=== PATIENT | female | born 1945 | race Caucasian/White ===

== ENCOUNTER 2019-09-28 11:54 | Emergency (ER) | payer MEDICARE ==
[2019-09-28] MEDS ORDERED: ONDANSETRON INJ 4 MG/2 ML VIAL IV ONE (12:18)
[2019-09-28] MEDS ORDERED: SODIUM CHLORIDE 0.9% (FLUSH) 10 ML SYG IV PRN (12:18)
[2019-09-28] MEDS ORDERED: ASPIRIN TABLET 325 MG TAB PO ONE (12:18)
[2019-09-28] MEDS ORDERED: PROMETHAZINE HCL INJ 12.5 MG in SODIUM CHLORIDE 0.9% 50ML 50 ML IVPB ONE (12:22)
[2019-09-28] MEDS ORDERED: diazePAM INJ 10 MG/2 ML SYG IV ONE (12:22)
[2019-09-28] MEDS ORDERED: PROMETHAZINE HCL INJ 25 MG/ML VIAL ONE (12:32)
--- NOTE | 2019-09-28 12:32 | ED.PDOC ---
History of Present Illness - General Chief Complaint: Chest Pain/NM Stated Complaint: Chest pain, vomiting Time Seen by Provider: 09/28/19 12:18 - History of Present Illness Initial Comments: 73 y/o female presents with vertigo, n/v, and intermittent chest pain. She states that she has benign positional vertigo and took meclizine without improvement. She also does positional maneuvers to no avail. She reports having on and off chest pain last night. A heart cath within the last year was clean for CAD. She had an apple before bed. This morning she has vomited her breakfast, the aspirin she took and again in the ER after sitting up. No fever, chills, cough, h/a, or diarrhea Allergies/Adverse Reactions: Allergies Hydroxychloroquine [From Plaquenil] Allergy (Verified 09/28/19 12:31) Methotrexate Allergy (Verified 09/28/19 12:31) Sulfasalazine Allergy (Verified 09/28/19 12:31) Acetaminophen [From Darvocet-N] Adverse Reaction (Verified 09/28/19 12:31) Aspirin [From Talwin Compound] Adverse Reaction (Verified 09/28/19 12:31) Bisoprolol Adverse Reaction (Verified 09/28/19 12:31) Butorphanol [From Stadol] Adverse Reaction (Verified 09/28/19 12:31) Codeine Adverse Reaction (Verified 09/28/19 12:31) Doxycycline Adverse Reaction (Verified 09/28/19 12:31) Meloxicam [From Mobic] Adverse Reaction (Verified 09/28/19 12:31) Morphine and Related Adverse Reaction (Verified 09/28/19 12:31) Naproxen Adverse Reaction (Verified 09/28/19 12:31) Pentazocine [From Talwin Compound] Adverse Reaction (Verified 09/28/19 12:31) Propoxyphene [From Darvon] Adverse Reaction (Verified 09/28/19 12:31) Tramadol Adverse Reaction (Verified 09/28/19 12:31) Home Medications: Ambulatory Orders Bifidobacterium Infantis [Align] 4 mg PO DAILY 09/28/19 Biotin [Biotin Extra Strength] 10,000 mcg PO DAILY 09/28/19 [id number] [Butalbital/Acetaminophen/] 1 cap PO TID PRN 04/24/20 Coconut Oil (Bulk) [Coconut Oil] 1 oil XX DAILY 09/28/19 Dicyclomine HCl [Dicyclomine Hydrochloride] 10 mg PO TID PRN 09/28/19 Diltiazem HCl Coated Beads [Cartia Xt] 240 mg PO DAILY 09/28/19 Meclizine HCl [Meclizine] 25 mg PO DAILY PRN 09/28/19 Multiple Vitamin [Multi Vitamin] 1 tab PO DAILY 09/28/19 Ondansetron Odt [Zofran ODT] 8 mg PO PRN PRN 09/28/19 RX: Aspirin [Baby Aspirin] 81 mg PO QD 09/28/19 RX: Evening Gorin Oil [Evening Gorin Oil 500 mg] 500 mg PO DAILY 09/28/19 RX: Omeprazole 40 mg PO BID 09/28/19 RX: Sumatriptan Succinate 50 mg PO PRN PRN 09/28/19 Turmeric (Curcuma Longa) [Turmeric] 450 mg PO DAILY 09/28/19 Review of Systems - Review of Systems Constitutional: States: no symptoms reported EENTM: States: see HPI Respiratory: States: no symptoms reported Cardiology: States: see HPI, chest pain Gastrointestinal/Abdominal: States: no symptoms reported, nausea, vomiting Genitourinary: States: no symptoms reported Musculoskeletal: States: no symptoms reported Skin: States: no symptoms reported Neurological: States: see HPI Endocrine: States: no symptoms reported Hematologic/Lymphatic: States: no symptoms reported Past Medical History (General) - Patient Medical History Hx Seizures: No Hx Stroke: No Hx Dementia: No Hx Asthma: Yes Hx of COPD: No Hx Cardiac Disorders: No Hx Congestive Heart Failure: No Hx Pacemaker: No Hx Hypertension: Yes Hx Thyroid Disease: No Hx Diabetes: No Hx Renal Disease: No Hx Cancer: No Hx of HIV: No Hx Hepatitis C: No Hx MRSA: No - Vaccination History Hx Tetanus, Diphtheria Vaccination: No Hx Influenza Vaccination: No Hx Pneumococcal Vaccination: No - Social History Hx Tobacco Use: No Hx Alcohol Use: No Family Medical History - Family History Mother Family History: Unknown Living Status: Unknown Physical Exam - Physical Exam General Appearance: Alert, No apparent distress Eye Exam: bilateral abnormal EOM - nystagmus with R gaze Ears, Nose, Throat: hearing grossly normal, normal ENT inspection Neck: non-tender, full range of motion, supple, normal inspection Respiratory: chest non-tender, lungs clear, normal breath sounds Cardiovascular/Chest: regular rate, rhythm, no edema, no JVD, no murmur Gastrointestinal/Abdominal: normal bowel sounds, non tender, soft Back Exam: normal inspection Extremity: normal range of motion, non-tender, normal inspection, no pedal edema Neurologic: no motor/sensory deficits, alert, normal mood/affect, oriented x 3, other - intact ftn, no drift, intact heel to pizano Skin Exam: normal color, warm/dry Progress - Progress Progress: 09/28/19 14:50 NSR with PVC incomplete RBBB, ST-T wave abnormality 09/28/19 15:47Pt has not improved in spite of treatment. Plan to transfer to [facility] for further evaluation and treatment. Neurologist not available here. pt and daughter are in agreement with plan Departure - Departure Clinical Impression: Vertigo Disposition: Transfer to Hospital Condition: Fair Referrals: Elizabeth Viera FNP [Primary Care Provider] - 1-2 Weeks Home Medications: Ambulatory Orders Bifidobacterium Infantis [Align] 4 mg PO DAILY 09/28/19 Biotin [Biotin Extra Strength] 10,000 mcg PO DAILY 09/28/19 [id number] [Butalbital/Acetaminophen/] 1 cap PO TID PRN 09/28/19 Coconut Oil (Bulk) [Coconut Oil] 1 oil XX DAILY 09/28/19 Dicyclomine HCl [Dicyclomine Hydrochloride] 10 mg PO TID PRN 09/28/19 Diltiazem HCl Coated Beads [Cartia Xt] 240 mg PO DAILY 09/28/19 Meclizine HCl [Meclizine] 25 mg PO DAILY PRN 09/28/19 Multiple Vitamin [Multi Vitamin] 1 tab PO DAILY 09/28/19 Ondansetron Odt [Zofran ODT] 8 mg PO PRN PRN 09/28/19 RX: Aspirin [Baby Aspirin] 81 mg PO QD 09/28/19 RX: Evening Gorin Oil [Evening Gorin Oil 500 mg] 500 mg PO DAILY 09/28/19 RX: Omeprazole 40 mg PO BID 09/28/19 RX: Sumatriptan Succinate 50 mg PO PRN PRN 09/28/19 Turmeric (Curcuma Longa) [Turmeric] 450 mg PO DAILY 09/28/19
[2019-09-28] MEDS ORDERED: SODIUM CHLORIDE 0.9% 50ML 50 ML ONE (12:33)
[2019-09-28] MEDS ORDERED: diazePAM INJ 10 MG/2 ML SYG ONE (12:33)
--- NOTE | 2019-09-28 12:47 | RAD ---
EXAM DESCRIPTION: Chest,1 View CLINICAL HISTORY: chest pain COMPARISON: None available FINDINGS: The cardiomediastinal silhouette is unremarkable. There is no airspace consolidation or pleural effusion. The bronchovascular markings are within normal limits, and the lungs are not hyperinflated. There is no pneumothorax or acute fracture. IMPRESSION: Negative exam. Electronically signed by: Tate Watt MD 09/28/2019 12:46 PM CDT
--- NOTE | 2019-09-28 15:11 | CT ---
EXAM DESCRIPTION: Head CLINICAL HISTORY: stroke COMPARISON: None available TECHNIQUE: Contiguous axial images through the head were obtained without intravenous contrast administration. Sagittal and coronal reconstructions were reviewed. FINDINGS: No evidence of acute major vascular territorial infarct or intraparenchymal hemorrhage. No intra-axial or extra-axial fluid collections are identified. The ventricles and cisterns appear normal in caliber. The sella and suprasellar regions appear normal. The structures of the posterior fossa are intact. The globes are intact bilaterally. The visualized paranasal sinuses and mastoid air cells are well-aerated. Review of the bones demonstrates no gross instability. IMPRESSION: No CT evidence of acute intracranial process. This exam was performed according to our departmental dose-optimization program, which includes automated exposure control, adjustment of the mA and/or kV according to patient size and/or use of iterative reconstruction technique. Electronically signed by: Tiffanie Lock MD 09/28/2019 3:10 PM CDT
[2019-09-28 15:46] VITALS: O2SAT 96
[2019-09-28 16:07] VITALS: BP 168/77; TEMP 98.1
== END 2019-09-28 16:30 | disposition short-term general hospital (02) ==
LOC: ER 11:54
DX: R42 Dizziness and giddiness (principal); R07.9 Chest pain, unspecified; I10 Essential (primary) hypertension
CPT/HCPCS: 70450; 71045; 80048; 82550; 82553; 84484; 85025; 85610; 85730; 93005; A4216; J2550; J3360